=== PATIENT | male | born 1990 | race Caucasian/White ===

== ENCOUNTER 2019-08-24 15:33 | Emergency (ER) | payer MEDICAID ==
[2019-08-24] MEDS ORDERED: Ketorolac 60 MG/2 ML SDV IM ONE (16:32)
[2019-08-24] MEDS ORDERED: cefTRIAXone 1 GM Vial IM ONE (16:34)
--- NOTE | 2019-08-24 16:43 | EDM.PDOC ---
ED HPI GENERAL MEDICAL PROBLEM - General Stated Complaint: TOOTH INFECTION Time Seen by Provider: 08/24/19 16:15 Source of Information: Reports: Patient History Limitations: Reports: No Limitations - History of Present Illness INITIAL COMMENTS - FREE TEXT/NARRATIVE: has chronic dental problems , has broken tooth on the right upper side in the last 3 days has had pain swelling from the area of the gums no facial swelling , no fever or chills noted - Related Data Allergies Allergy/AdvReac Type Severity Reaction Status Date / Time No Known Allergies Allergy Verified 08/24/19 16:51 Home Meds: Home Meds Chlorhexidine Gluconate [Peridex] 15 ml MM TID #473 mouthwash 08/24/19 [Rx] Clindamycin HCl 300 mg PO TID #30 capsule 08/24/19 [Rx] Ibuprofen 600 mg PO TID #30 tablet 08/24/19 [Rx] Past Medical History HEENT History: Reports: Other (See Below) (dental cavities) ED ROS ENT - Review of Systems Review Of Systems: Comprehensive ROS is negative, except as noted in HPI. Constitutional: Reports: No Symptoms. Denies: Fever, Chills, Malaise, Weakness HEENT: Reports: Dental Pain (right upper premolar, molar gingival swelling, redness ) Respiratory: Reports: No Symptoms Cardiovascular: Reports: No Symptoms Endocrine: Reports: No Symptoms GI/Abdominal: Reports: No Symptoms Musculoskeletal: Reports: No Symptoms Skin: Reports: No Symptoms ED EXAM, ENT - Physical Exam Exam: See Below General Appearance: Alert, WD/WN, No Apparent Distress Eye Exam: Bilateral Eye: Abnormal EOM Ears: Normal External Exam, Normal Canal, Hearing Grossly Normal Nose: Normal Inspection Mouth/Throat: Dental Pain, Dental Tenderness, Gum Swelling (redness , non fluctuant mass ) Head: Atraumatic Neck: Normal Inspection, Supple, Non-Tender, Full Range of Motion Neurological: Alert, Oriented, CN II-XII Intact Psychiatric: Normal Affect Skin: Warm, Dry Course - Re-Assessments/Exams Free Text/Narrative Re-Assessment/Exam: 08/24/19 16:46 pt given toradol and Rocephin will FU with 10 days of antibiotics Departure - Departure Time of Disposition: 16:55 Disposition: Home, Self-Care 01 Condition: Fair Clinical Impression: Chronic dental pain, Dental cavities, Gingivitis due to dental plaque - Discharge Information *PRESCRIPTION DRUG MONITORING PROGRAM REVIEWED*: Not Applicable *COPY OF PRESCRIPTION DRUG MONITORING REPORT IN PATIENT PAYAL: Not Applicable Instructions: Dental Extraction, [id number], Preventive Dental Care, Adult
== END 2019-08-24 17:20 | disposition home or self-care (01) ==
LOC: FB.ED 15:33
DX: K02.9 Dental caries, unspecified (principal); K05.10 Chronic gingivitis, plaque induced
CPT/HCPCS: 96372; 99282; J0696; J1885

== ENCOUNTER 2019-09-26 23:43 | Emergency (ER) | payer MEDICAID ==
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
[2019-09-27 01:29] LABS: ACETAMINOPHEN < 2 ug/mL (<2)
== END 2019-09-27 01:30 | disposition home or self-care (01) ==
LOC: FB.ED 23:43
DX: R45.851 Suicidal ideations (principal); R44.0 Auditory hallucinations; G47.00 Insomnia, unspecified
CPT/HCPCS: 36415; 80053; 80305-QW; 80307; 84439; 84443; 85025; 99284

== ENCOUNTER 2019-10-29 16:12 | Emergency (ER) | payer MEDICAID ==
[2019-10-29] MEDS ORDERED: Ondansetron 4 MG Tab.DIS PO ONE (16:24)
--- NOTE | 2019-10-29 16:34 | EDM.PDOC ---
ED HPI GENERAL MEDICAL PROBLEM - General Chief Complaint: Gastrointestinal Problem Stated Complaint: VOMITING, FEVER Time Seen by Provider: 10/29/19 16:15 Source of Information: Reports: Patient, Old Records History Limitations: Reports: No Limitations - History of Present Illness INITIAL COMMENTS - FREE TEXT/NARRATIVE: Julio comes into [facility] ED with a 3 day hx of nausea, emesis yesterday and today of partially digested food. There is no fever, chills, sweats, diarrhea or abdominal pain by self report. He has no known exposure. He was sent home from work at [employer] today because he had an emesis on shift. He has tried no meds. - Related Data Allergies Allergy/AdvReac Type Severity Reaction Status Date / Time No Known Allergies Allergy Verified 09/27/19 00:49 Home Meds: Home Meds NK [No Known Home Meds] 09/27/19 [History] Past Medical History HEENT History: Reports: Other (See Below) (dental cavities) Other HEENT History: missing teeth Cardiovascular History: Reports: None Respiratory History: Reports: None Gastrointestinal History: Reports: None Genitourinary History: Reports: None Musculoskeletal History: Reports: None Neurological History: Reports: None Psychiatric History: Reports: Addiction, Anxiety, Depression, Schizophrenia Endocrine/Metabolic History: Reports: None Hematologic History: Reports: None Oncologic (Cancer) History: Reports: None Dermatologic History: Reports: None - Infectious Disease History Infectious Disease History: Reports: None Social & Family History - Family History Family Medical History: Noncontributory - Caffeine Use Caffeine Use: Reports: Coffee ED ROS GENERAL - Review of Systems Review Of Systems: Comprehensive ROS is negative, except as noted in HPI. ED EXAM, GI/ABD - Physical Exam Exam: See Below Exam Limited By: No Limitations General Appearance: Alert, WD/WN, No Apparent Distress, Anxious, Thin Eyes: Bilateral: Normal Appearance, EOMI Ears: Normal External Exam Nose: Normal Inspection Throat/Mouth: Normal Inspection, Normal Oropharynx, Normal Voice Head: Normocephalic Neck: Normal Inspection, Supple, Non-Tender Respiratory/Chest: Lungs Clear, Normal Breath Sounds, Chest Non-Tender Cardiovascular: Normal Peripheral Pulses, Regular Rate, Rhythm, No Edema, No Murmur GI/Abdominal Exam: Normal Bowel Sounds, Soft, No Organomegaly, No Distention, No Mass (Male) Exam: Deferred Rectal (Males) Exam: Deferred Back Exam: Normal Inspection Extremities: Normal Inspection Neurological: Alert, Oriented, CN II-XII Intact, No Motor/Sensory Deficits Psychiatric: Normal Affect, Anxious Skin Exam: Warm, Dry, Intact, Normal Color Lymphatic: No Adenopathy Course - Vital Signs Text/Narrative:: Following assessment, I ordered some screeing labs, refused by patient. Empiric treatment with Zofran ODT 4 mg and Protonix 40 mgs were taken by rayray, who then requested discharge home. He was anxious, but clinically asx at time of discharge. - Orders/Labs/Meds Orders: Active Orders 24 hr Category Date Time Status BASIC METABOLIC PANEL,BMP [CHEM] Stat Lab 10/29/19 16:24 Ordered CBC WITH AUTO DIFF [HEME] Stat Lab 10/29/19 16:24 Ordered DRUG SCREEN, URINE ALERE [URCHEM] Stat Lab 10/29/19 16:27 Ordered UA W/MICROSCOPIC [URIN] Stat Lab 10/29/19 16:24 Ordered Meds: Medications Discontinued Medications Generic Name Dose Route Start Last Admin Trade Name Keaton PRN Reason Stop Dose Admin Ondansetron HCl 4 mg 10/29/19 16:24 10/29/19 16:44 Zofran Odt PO 10/29/19 16:25 4 mg ONETIME ONE Administration Pantoprazole Sodium 40 mg 10/29/19 16:45 10/29/19 16:49 Protonix PO 10/29/19 16:46 40 mg ONETIME ONE Administration Departure - Departure Time of Disposition: 17:04 Disposition: Home, Self-Care 01 Condition: Fair Clinical Impression: Nausea & vomiting Qualifiers: Vomiting type: unspecified Vomiting Intractability: non-intractable Qualified Code(s): R11.2 - Nausea with vomiting, unspecified - Discharge Information *PRESCRIPTION DRUG MONITORING PROGRAM REVIEWED*: Not Applicable *COPY OF PRESCRIPTION DRUG MONITORING REPORT IN PATIENT PAYAL: Not Applicable Forms: ED Department Discharge - Problem List & Annotations (1) Nausea & vomiting SNOMED Code(s): 70320810 Code(s): R11.2 - NAUSEA WITH VOMITING, UNSPECIFIED Status: Acute Current Visit: Yes Annotation/Comment:: Nausea and vomiting by self report, stable at the ED. Patient appeared anxious to be discharge home after administering the Zofran ODT and Protonix orally. Qualifiers: Vomiting type: unspecified Vomiting Intractability: non-intractable Qualified Code(s): R11.2 - Nausea with vomiting, unspecified - Problem List Review Problem List Initiated/Reviewed/Updated: Yes - My Orders Last 24 Hours: My Active Orders 10/29/19 16:24 BASIC METABOLIC PANEL,BMP [CHEM] Stat CBC WITH AUTO DIFF [HEME] Stat UA W/MICROSCOPIC [URIN] Stat 10/29/19 16:27 DRUG SCREEN, URINE ALERE [URCHEM] Stat - Assessment/Plan Last 24 Hours: My Active Orders 10/29/19 16:24 BASIC METABOLIC PANEL,BMP [CHEM] Stat CBC WITH AUTO DIFF [HEME] Stat UA W/MICROSCOPIC [URIN] Stat 10/29/19 16:27 DRUG SCREEN, URINE ALERE [URCHEM] Stat Plan: Follow up with PCP if needed.
[2019-10-29] MEDS ORDERED: Pantoprazole 40 MG Tab.CR PO ONE (16:45)
[2019-10-30] MEDS ORDERED: Pantoprazole 40 MG Tab.CR PO SCH (06:00)
== END 2019-10-29 17:11 | disposition home or self-care (01) ==
LOC: FB.ED 16:12
DX: R11.2 Nausea with vomiting, unspecified (principal)
CPT/HCPCS: 99283; A9270

== ENCOUNTER 2022-09-02 21:07 | Emergency (ER) | payer BC, MEDICAID | END 2022-09-02 21:52 | disposition home or self-care (01) | LOC: FB.ED 21:07 | DX: E86.0 Dehydration (principal) | CPT/HCPCS: 99283 ==

== ENCOUNTER 2023-01-05 03:09 | Emergency (ER) | payer MEDICAID ==
[2023-01-05 05:38] LABS: BLOOD UREA NITROGEN,BUN 13 mg/dL (7-18); BUN/CREATININE RATIO 18.6 (9-20); CALCIUM 9.2 mg/dL (8.6-10.2); CARBON DIOXIDE,CO2 33 mmol/L (21-32); CHLORIDE,CL 103 mmol/L (100-110); CREATININE 0.7 mg/dL (0.70-1.30); EST CRCL DRUG DOSING (CG) 141.26 mL/min; ESTIMATED GFR 126 mL/min (>60); GLUCOSE RANDOM 98 mg/dL (80-116); POTASSIUM,K 3.8 mmol/L (3.5-5.3); SODIUM,NA 139 mmol/L (135-145)
[2023-01-05 05:44] LABS: ALANINE AMINOTRANSFERASE,ALT 31 U/L (12-36); ALBUMIN 3.7 g/dL (3.5-5.2); ALKALINE PHOSPHATASE 63 IU/L (56-112); ASPARTATE AMNIOTRANSFERASE,AST 19 IU/L (5-25); BILIRUBIN TOTAL 0.7 mg/dL (0.1-1.3); PROTEIN TOTAL,TP 7.3 g/dL (6.0-8.0)
[2023-01-05 05:49] LABS: BASOPHILS ABSOLUTE AUTO 0.1 x10-3/uL (0.0-0.3); EOSINOPHILS ABSOLUTE AUTO 0.3 x10-3/uL (0.0-0.6); EOSINOPHILS PERCENT AUTO 3.8 % (0.1-6.8); HEMATOCRIT 42.4 % (38.3-50.1); HEMOGLOBIN 14.6 g/dL (12.9-17.7); LYMPHOCYTES ABSOLUTE AUTO 1.7 x10-3/uL (0.5-4.5); LYMPHOCYTES PERCENT AUTO 21.9 % (15.8-45.3); MEAN CORPUSCULAR HEMOGLOBIN 31.8 pg (27.0-33.3); MEAN CORPUSCULAR HGB CONC 34.6 g/dL (28.7-35.3); MEAN PLATELET VOLUME 8.2 fL (6.7-11.0); MONOCYTES ABSOLUTE AUTO 0.5 x10-3/uL (0.0-1.2); MONOCYTES PERCENT AUTO 6.1 % (5.5-15.2); NEUTROPHILS ABSOLUTE AUTO 5.3 x10-3/uL (1.7-6.9); NEUTROPHILS PERCENT AUTO 67.2 % (40.3-71.8); PLATELET COUNT,PLT 285 x10(3)uL (117-477); RED BLOOD CELL COUNT 4.61 x10(6)uL (3.90-5.90); RED CELL DISTRIBUTION WIDTH 12.7 % (12.4-15.0)
[2023-01-05 05:52] LABS: TSH ULTRASENSITIVE 2.06 IU/mL (0.36-3.74)
[2023-01-05 05:55] LABS: ETHANOL BLOOD MEDICAL < 0.03 % (<0.03)
[2023-01-05 06:11] LABS: AMPHETAMINES SCREEN, URINE POSITIVE (NEGATIVE); BARBITURATE SCREEN,URINE NEGATIVE (NEGATIVE); BENZODIAZEPINES SCREEN,URINE NEGATIVE (NEGATIVE); BUPRENORPHINE SCREEN,URINE NEGATIVE (NEGATIVE); METHADONE SCREEN, URINE NEGATIVE (NEGATIVE); METHAMPHETAMINE SCREEN, URINE POSITIVE (NEGATIVE); OXYCODONE SCREEN,URINE NEGATIVE (NEGATIVE); THC SCREEN,URINE NEGATIVE (NEGATIVE)
[2023-01-08 22:08] LABS: THYROXINE FREE 0.9 ng/dL (0.9-1.7)
== END 2023-01-05 06:01 | disposition home or self-care (01) ==
LOC: FB.ED 03:09
DX: F20.9 Schizophrenia, unspecified (principal); F32.A Depression, unspecified; F10.10 Alcohol abuse, uncomplicated; F43.10 Post-traumatic stress disorder, unspecified; F31.9 Bipolar disorder, unspecified; F19.90 Other psychoactive substance use, unspecified, uncomplicated; Z79.899 Other long term (current) drug therapy
CPT/HCPCS: 36415; 80053; 80307; 84439; 84443; 85025; 99284

== ENCOUNTER 2024-11-22 00:28 | Emergency (ER) | payer MEDICAID ==
[2024-11-22 01:20] LABS: BASOPHILS ABSOLUTE AUTO 0.0 x10-3/uL (0.0-0.3); BASOPHILS PERCENT AUTO 0.8 % (0.3-3.8); EOSINOPHILS ABSOLUTE AUTO 0.1 x10-3/uL (0.0-0.6); EOSINOPHILS PERCENT AUTO 1.6 % (0.1-6.8); LYMPHOCYTES ABSOLUTE AUTO 1.8 x10-3/uL (0.5-4.5); LYMPHOCYTES PERCENT AUTO 27.7 % (15.8-45.3); MEAN PLATELET VOLUME 9.2 fL (6.7-11.0); MONOCYTES ABSOLUTE AUTO 0.4 x10-3/uL (0.0-1.2); MONOCYTES PERCENT AUTO 6.0 % (5.5-15.2); NEUTROPHILS ABSOLUTE AUTO 4.1 x10-3/uL (1.7-6.9); NEUTROPHILS PERCENT AUTO 63.9 % (40.3-71.8); PLATELET COUNT,PLT 262 x10(3)uL (117-477); RED BLOOD CELL COUNT 4.71 x10(6)uL (3.90-5.90); RED CELL DISTRIBUTION WIDTH 12.5 % (12.4-15.0); WHITE BLOOD CELL COUNT,WBC 6.4 x10-3/uL (3.2-10.1)
[2024-11-22 01:26] LABS: BLOOD UREA NITROGEN,BUN 8 mg/dL (7-18); CARBON DIOXIDE,CO2 30 mmol/L (21-32); CHLORIDE,CL 101 mmol/L (100-110); CREATININE 0.6 mg/dL (0.70-1.30); ESTIMATED GFR 131 mL/min (>60); GLUCOSE RANDOM 105 mg/dL (80-116); POTASSIUM,K 3.2 mmol/L (3.5-5.3); SODIUM,NA 140 mmol/L (135-145)
[2024-11-22 01:31] LABS: A/G RATIO 1.3; ALANINE AMINOTRANSFERASE,ALT 29 U/L (12-36); ASPARTATE AMNIOTRANSFERASE,AST 17 IU/L (5-25); BILIRUBIN TOTAL 1.0 mg/dL (0.1-1.3); PROTEIN TOTAL,TP 7.2 g/dL (6.0-8.0)
[2024-11-22 01:42] LABS: TSH ULTRASENSITIVE 3.22 IU/mL (0.36-3.74)
[2024-11-22 01:44] LABS: ETHANOL BLOOD MEDICAL < 0.03 % (<0.03)
[2024-11-22] MEDS ORDERED: Potassium Chloride 20 MEQ Tab.ER PO ONE (01:51)
[2024-11-24 14:45] LABS: THYROXINE FREE 1.2 ng/dL (0.9-1.7)
== END 2024-11-22 02:06 | disposition left against medical advice (07) ==
LOC: FB.ED 00:28
DX: F23 Brief psychotic disorder (principal); F31.5 Bipolar disorder, current episode depressed, severe, with psychotic features; F17.210 Nicotine dependence, cigarettes, uncomplicated; Z79.899 Other long term (current) drug therapy
CPT/HCPCS: 36415; 80053; 80143; 80179; 80307; 84439; 84443; 85025; 99284